=== PATIENT | male | born 1970 | race Caucasian/White ===

== ENCOUNTER 2020-06-15 13:54 | Outpatient (CLI) | payer BC, SELFPAY | END 2020-06-15 13:55 | disposition home or self-care (01) | LOC: ANHAUDIO 13:55 | PROVIDERS: PCP Internal Medicine; Visit Provider Otolaryngology | DX: H90.3 Sensorineural hearing loss, bilateral (principal) | CPT/HCPCS: 92557; 92567 ==

== ENCOUNTER 2020-11-08 08:00 | Outpatient (CLI) | payer BC, SELFPAY ==
--- NOTE | 2020-11-08 17:10 | P.PCNPFT_ITS ---
PFT Interpretation This is a pulmonary function test with pre and post-bronchodilator spirometry, plethysmography and diffusing capacity. The test was performed and results interpreted in accordance with the 2019 and 2005 ATS/ERS Task Force guidelines respectively using the Global Lung Function Initiative-2012 reference equations. Patient demonstrated good effort and c ooperation. Reproducibility criteria were met. The quality of the pre bronchodilator spirometry maneuver was Grade B and post bronchodilator spirometry maneuver was Grade A. Findings: Spirometry: The contour the inspiratory and expiratory flow tracing are normal. The pre bronchodilator FVC is 3.20 L, 63% predicted. The pre bronchodilator FEV1 is 2.76 L, 69% predicted. The FEV1: FVC ratio was 86%. The post bronchodilator FVC is 3.13 L, representing a 2% decrease. The post bronchodilator FEV1 is 2.75 L, representing no change. Plethysmography: The total lung capacity is 4.44 L, 64% predicted. The functional residual capacity is 2.66 L, 75% predicted. The residual volume is 1.24 L, 62% predicted. Diffusing capacity: The absolute diffusion capacity is 20.9, 67% predicted. Th e diffusing capacity corrected for alveolar volume is 6.52, 141% predicted. Impression: There is a moderately restrictive ventilatory abnormality. The spirometry is normal without evidence of an obstructive abnormality. There is no significant improvement after inhaling a single dose of albuterol. The absolute diffusing capacity is mildly decreased and is increased when corrected for alveolar volume. There are no prior studies for comparison
== END 2020-11-08 08:01 | disposition home or self-care (01) ==
PROVIDERS: Family Provider Internal Medicine; PCP Internal Medicine; Visit Provider Internal Medicine
DX: R06.00 Dyspnea, unspecified (principal); R94.2 Abnormal results of pulmonary function studies
CPT/HCPCS: 94060; 94726; 94729

== ENCOUNTER → 2020-11-08 09:10 | Outpatient (CLI) | payer BC, SELFPAY ==
--- NOTE | ~2020-11-08 | XR_ITS ---
EXAMINATION: XR chest 2V DATE: 11/08/2020 09:18 INDICATION: Shortness of breath, possible asbestos exposure TECHNIQUE: PA and lateral views of the chest are obtained. COMPARISON: 10/28/2018 FINDINGS: The lungs are free of acute opacities. No radiographic sequela of asbestos exposure are irineo ntified. A calcified nodule of the right lower lobe is consistent with old granulomatous disease. The re is no pleural effusion or pneumothorax. The cardiomediastinal silhouette is normal. There is mild thoracic spondylosis. There is mild chronic anterior wedging vertebral body. Surgical changes are not ed in the lower cervical spine. IMPRESSION: 1. No radiographic sequela of asbestos exposure identified. Reviewed, dictated and finalized at location A. ARCH [facility]LLOW
== END ==
PROVIDERS: PCP Internal Medicine; Visit Provider Internal Medicine
DX: Z77.090 Contact with and (suspected) exposure to asbestos (principal)
CPT/HCPCS: 71046

== ENCOUNTER 2021-09-19 11:29 | Outpatient (RCR) | payer BC, SELFPAY ==
[2021-09-19] MEDS: diphenhydrAMINE HCl CAP 25 MG CAPSULE PO (13:57)
[2021-09-19] MEDS: ACETAMINOPHEN 325 MG TABLET 650 MG PO (13:57)
[2021-09-19] MEDS: FAMOTIDINE 20 MG TABLET PO (13:57)
[2021-09-19 13:58] VITALS: BP 141/86; PULSE 84; RESP 16; TEMP 36.3; O2SAT 99
[2021-09-19 15:23] VITALS: BP 143/89; PULSE 75; O2SAT 99
== END 2021-09-19 16:00 ==
LOC: AMCINF 11:29
PROVIDERS: PCP Internal Medicine; Visit Provider Internal Medicine Hematology & Oncology
DX: U07.1 COVID-19 (principal); I10 Essential (primary) hypertension
CPT/HCPCS: A9270; M0243; Q0244

== ENCOUNTER 2022-12-29 14:02 | Outpatient (CLI) | payer BC, SELFPAY ==
[2022-12-29 15:05] LABS: SARS-CoV-2 RNA PCR Negative (Negative)
== END 2022-12-29 14:03 | disposition home or self-care (01) ==
LOC: ANHLAB 14:03
PROVIDERS: PCP Internal Medicine; Visit Provider Physician Assistant
DX: R68.89 Other general symptoms and signs (principal); Z20.822 Contact with and (suspected) exposure to COVID-19
CPT/HCPCS: U0003; U0005

== ENCOUNTER 2023-08-17 12:34 | Outpatient (CLI) | payer BC, SELFPAY ==
--- NOTE | 2023-08-17 12:41 | ECHO_ITS ---
Patient Info Name: Vern Sanders Age: 53 years : 1970 Gender: Male Ht: 71 in Wt: 205 lbs BSA: 2.18 m2 HR: 62 bpm BP: 155 / 99 mmHg Heart Rhythm: Sinus Rhythm Technical Quality: Good Exam Date: 08/17/2023 12:54 PM Exam Location: Echo Lab Patient Status: Outpatient Admit Date: 08/17/2023 Staff Ordering Physician: Gustavo Edwards PA-C Tablet Coater: Mirella Palomino RDCS Attending Provider: Gustavo Edwards PA-C Referring Physician: Grace GUNDERSON; Exam Type: CA echo doppler color flow Study Info Indications - New onset pedal edema Complete two-dimensional, color flow and Doppler transthoracic echocardiogram is performed. Summary 1. Complete two-dimensional, color flow and Doppler transthoracic echocardiogram is performed. 2. Left ventricular chamber dimension is normal. 3. Left ventricular systolic function is normal, estimated at 65-70%. 4. The left ventricular diastolic function is grade II diastolic dysfunction. 5. E/e' 11 is mildly elevated. 6. Left atrial chamber dimension is moderately enlarged. 7. Right atrial chamber dimension is mildly enlarged. 8. There is mild aortic valve sclerosis. 9. There is trace aortic valve regurgitation. 10. There is mild mitral valve regurgitation. 11. There is trace tricuspid valve regurgitation. 12. Mild pulmonary hypertension, estimated pulmonary arterial systolic pressure is 40 mmHg. 13. There is trace pulmonic regurgitation. Left Ventricle E/e' 11 is mildly elevated. Left ventricular chamber dimension is normal. Left ventricular systolic function is normal, estimated at 65-70%. The left ventricular diastolic function is grade II diastolic dysfunction. Right Ventricle Right ventricular systolic function is normal and with normal TAPSE 3.4 cm. Right ventricular chamber dimension is normal. Left Atria Left atrial chamber dimension is moderately enlarged. Right Atria Right atrial chamber dimension is mildly enlarged. Aortic Valve The aortic valve is trileaflet. There is mild aortic valve sclerosis. There is no aortic valve stenosis. There is trace aortic valve regurgitation. Pulmonic Valve There is trace pulmonic regurgitation. Mitral Valve There is no mitral valve stenosis. There is mild mitral valve regurgitation. Tricuspid Valve There is trace tricuspid valve regurgitation. Mild pulmonary hypertension, estimated pulmonary arterial systolic pressure is 40 mmHg. Pericardium/Pleural There is no pericardial effusion. Inferior Vena Cava Normal inferior vena cava with >50% collapse upon inspiration consistent with normal right atrial pressure, 5 mmHg. Aorta The aortic root size at the sinus of Valsalva is normal. Left Ventricular Outflow Tract Name Value Normal LVOT 2D LVOT Diameter 2.1 cm LVOT Doppler LVOT Peak Gradient 10 mmHg LVOT Mean Gradient 4 mmHg LVOT VTI 32 cm LVOT VTI/AV VTI Ratio 0.8 LVOT Stroke Volume 107 ml LVOT CO 7.3 l/min LVOT CI 3.4 l/min/m2 Pulmonic Valve
== END 2023-08-17 12:35 | disposition home or self-care (01) ==
LOC: ANHCARD 12:35
PROVIDERS: PCP Internal Medicine; Visit Provider Physician Assistant
DX: R93.1 Abnormal findings on diagnostic imaging of heart and coronary circulation (principal); I35.8 Other nonrheumatic aortic valve disorders; I35.1 Nonrheumatic aortic (valve) insufficiency; I34.0 Nonrheumatic mitral (valve) insufficiency; I07.1 Rheumatic tricuspid insufficiency; I27.20 Pulmonary hypertension, unspecified; I37.1 Nonrheumatic pulmonary valve insufficiency; R60.0 Localized edema
CPT/HCPCS: 93306

== ENCOUNTER 2025-06-05 13:45 | Outpatient (CLI) | payer OTHER, SELFPAY ==
--- OUTSIDE RECORDS SUMMARY | 2005-10-11 19:00 | XMS_ITS | Continuity of Care Document ---
Author Organization [facility] Address [address] [place] [address] Phone Care Team Providers Care Wildlife Biologist Name Role Phone Elton Cortes MD Unavailable Unavailable Advance Directives Directive Yes / No Effective Date File Name No Information Encounters Encounter Description Practice Location Reason(s) For Visit Diagnoses Date Provider Providers Copied on Encounter [facility], [address], [place], [place], [id number], tel:[phone] [facility] [id number] FX-CL/CRD INJ NOS Sebastian Conde. [address], [place], [place], [id number]. tel:[phone] [facility], [address], [place], [place], [address], tel:[phone] [facility] OTH ADV EFF MED/BIO SUBSCIATICA Sebastian Conde. [address], [place], [place], [id number]. tel:[phone] Family History Family Member Type Diagnosis Age At Onset No Information Payers Payer name Insurance type Covered libertarian ID Authoriza tion(s) No Information Social History Type Description Quantity Date Captured Comments Sex Male Smoking Status No Information Chief Complaint And Reason For Visit No Information Reason For Referral Reason For Referral No Information History Of Present Illness Encounter Date Complaint History Of Prese nt Illness No Information Functional Status Date Functional Assessmen t No Information Instructions Date Instruction Additional Infor mation No Information Assessments Type Assessment Date No Information Patient Care Teams Name Effective Dates (start - stop) Status Members No Information
--- NOTE | ~2025-06-05 | XR_ITS ---
EXAMINATION: XR hip RT min 2V, 06/05/2025 13:55 CDT HISTORY: M25.551 - Pain in right hip, CHRONIC, POPPING, LATERAL PAIN COMPARISON: No comparisons available. Findings: No acute fracture or malalignment. No significant degenerative changes. Soft tissues unremarkable. Impression: No acute fracture or malalignment. Reviewed, dictated and finalized at location P. Impression: No acute fracture or malalignment.
--- OUTSIDE RECORDS SUMMARY | 2025-06-05 13:49 | XMS_ITS | Clinical Summary ---
Author Organization [facility] Address [address] [address] Phone Care Team Providers Care Prefitter Doors Name Role Phone Cheng Anthony Primary Care Provider [phone] Allergies No known active allergies Medications HYDROcodone-acet aminophen (Porter) 5-325 MG Tablet Take 1 Tab by mouth every 8 hours as needed. Active Multiple Vitamin (MULTI-VITAMIN PO) Take by mouth every morning. Active lisinopril (PRINIVIL, ZESTRIL) 40 MG Tablet Take 40 mg by mouth daily. Active naproxen (NAPROSYN) 250 MG Tablet Take 250 mg by mouth 2 times daily (with meals). Active Encounters Date Type Department Care Team Description 05/06/2025 Telephone [facility] - Gastroenter[facility] [address] [place] [address] Lucho Giron MD Request for Records from Last 3 Months Family History Medical History Relation Name Comments Cancer Father colon Cancer Mother Breast Relation Name Status Comments Father Mother Social History Tobacco Use Types Packs/Day Years Used Date Smoking Tobacco: Never Smokeless Tobacco: Former Chew Quit: 1995 Alcohol Use Standard Drinks/Week Comments Yes 2 (1 standard drink = 0.6 oz pur e alcohol) Sex and Gender Information Value Date Recorded Sex Assigned at Not on file Legal Sex Male 9:25 PM CDT Gender Identity Not on file Sexual Orientation Not on file Last Filed Vital Signs Vital Sign Reading Time Taken Comments Blood Pressure 119/79 06/08/2020 7:46 AM CDT Pulse 61 06/08/2020 7:46 AM CDT Temperature 36 C (96.8 F) 06/08/2020 7:46 AM CDT Respiratory Rate 17 06/08/2020 7:46 AM CDT Oxygen Saturation 99% 06/08/2020 7:46 AM CDT Inhaled Oxygen Concentration - - Weight 99.8 kg (220 lb) 05/05/2020 11:00 AM CDT Height 177.8 cm (5' 10) 05/05/2020 11:00 AM CDT Body Mass Index 31.57 05/05/2020 11:00 AM CDT Plan of Treatment Health Maintenance Due Date Last Done Comments Hepatitis C Virus (HCV) Screening 1970 Hepatitis B Immunization (1 of 3 - 19+ 3-dose series) 1991 Cologuard 2017 Immunochemical Fecal Occult Blood 2017 Pneumococcal Immunization (50+ years) (1 of 1 - PCV) 2022 Zoster Immunization (1 of 2) 2022 Influenza Immunization (#1) 2025 1011/2018, 05/30/2018, 06/14/2017, Additional history exists SARS-COV-2 Immunization (2024- season) 2025 07/26/2021, 11/05/2020 Colonoscopy 06/08/2030 06/08/2020 Colorectal Cancer Screening 06/08/2030 Respiratory Syncytial Virus (RSV) Immunization (Adult) (1 - 1-dose 75+ series) 2047 DTaP/Tdap/Td Immunization Discontinued 06/19/2018 TdaP Immunization Completed 06/19/2018 Human Papillomavirus (HPV) Immunization Aged Out No longer eligible based on patient's age to complete this topic Meningococcal Immunization (ACWY) Aged Out No longer eligible based on patient's age to complete this topic Rotavirus Immunization Aged Out No lo nger eligible based on patient's age to complete this topic Insurance Care Teams Prefitter Doors Relationship Specialty Start Date End Date Cheng Anthony DO [address] [place] [address] PCP - General Internal Medicine 12/02/18
--- OUTSIDE RECORDS SUMMARY | 2025-06-05 13:49 | XMS_ITS | Clinical Summary ---
Author Organization [facility] Address [address] [place] [address] Care Team Providers Care Forestry Crew Chief Name Role Phone Cheng Anthony DO Primary Care Provider [phone] Source Comments [facility],non-owned Affiliates and Associated Physician Practices is amultiple site organization consisting of ambulatory clinics and hospital sitesin [place], [place], [place] and [place]. This disclosure is being madepursuant to the Care Everywhere program and may not contain all information available regarding this patient. Last updated 18.[facility] Allergies No known active allergies Medications * Be aware that medications may not be up to date on this document. Alwaysverify current medications with the patient. cyclobenzaprine (FLEXERIL) 10 MG tablet Take 10 mg by mouth nightly as needed 7 Active naproxen (NAPROSYN) 500 MG tablet Take 500 mg by mouth 2 times daily as needed 7 Active HYDROcodone-martinez taminophen (NORCO) 5-325 MG tablet Take by mouth every 6 hours as needed 7 Active SUMAtriptan (IMITREX) 100 MG tablet Take 1 tablet by mouth once as needed for Migraine 9 tablet 4 7 Active Additional Information Patient not taking.Reported on 11/06/2017 topiramate (TOPAMAX) 50 MG tablet Take 1 tablet by mouth at bedtime 30 tablet 5 7 Active Additional Information Patient not taking.Reported on 11/06/2017 indomethacin (INDOCIN) 50 MG capsule Take 1 capsule by mouth 3 times daily as needed for Pain 60 capsule 4 03/06/201 8 Active Active Problems Problem Noted Date Diagnosed Date Hyperlipemia Back pain Family History Medical History Relation Name Comments Cancer - Prostate Father Cancer - Breast Mother Other Sister Rdz's Relation Name Status Comments Brother Alive Father Alive Mother Sister Alive Social History Tobacco Use Types Packs/Day Years Used Date Smoking Tobacco: Never Smokeless Tobacco: Former Tobacco Cessation:Counseling Given: No Alcohol Use Standard Drinks/Week Comments Yes 0 (1 standard drink = 0.6 oz pur e alcohol) Occasionally Sex and Gender Information Value Date Recorded Sex Assigned at Not on file Legal Sex Male 9:17 AM LAND DEVELOPER Gender Identity Not on file Sexual Orientation Not on file Occupation Industry Job Start Date Job End Date [employer] Not on file Not on file Not on file Last Filed Vital Signs Vital Sign Reading Time Taken Comments Blood Pressure 149/91 11/06/2017 1:10 PM LAND DEVELOPER Pulse 62 11/06/2017 1:10 PM LAND DEVELOPER Temperature - - Respiratory Rate - - Oxygen Saturation - - Inhaled Oxygen Concentration - - Weight 97.5 kg (215 lb) 11/06/2017 1:10 PM LAND DEVELOPER Height 180.3 cm (5' 11) 11/06/2017 1:10 PM LAND DEVELOPER Body Mass Index 29.99 11/06/2017 1:10 PM LAND DEVELOPER Plan of Treatment Health Maintenance Due Date Last Done Comments COLOGUARD (AGES 45-75) - COL ON CA SCREENING 1970 COLON MONITORING 1972 COLONOSCOPY - COLON CA SCREENING 1972 CT COLONOGRAPHY - COLON CA SCREENING 1972 Colorectal Cancer Screening 1972 FIT - COLON CA SCREENING 1972 FLEX SIG - COLON CA SCREENING 1972 LIPID TESTING 1972 HIV SCREENING 1987 HEPATITIS C SCREENING 04/10/1990 DTAP/TDAP/TD VACCINES (1 - Tdap) 1991 HEPATITIS B VACCINE (1 of 3 - 19+ 3-dose series) 1991 SCREENING FOR DIABETES 08/07/2017 PNEUMOCOCCAL VACCINE 50+ (1 of 1 - PCV) 2022 ZOSTER VACCINE (1 of 2) 2022 DEPRESSION SCREENING 09/03/2024 COVID-19 VACCINE (1 - 2023-2 5 season) 2025 INFLUENZA VACCINE (#1) 2025 HIB VACCINE Aged Out No longer eligi ble based on patient's age to complete this topic HPV VACCINE Aged Out No longer eligi ble based on patient's age to complete this topic MENINGOCOCCAL (Group B) VACC INE SHARED DECISION-MAKING Aged Out No longer eligibl e based on patient's age to complete this topic MENINGOCOCCAL GROUPS A/C/Y/W VACCINE Aged Out No longer eligible b ased on patient's age to complete this topic Insurance ANTHEM Care Teams Forestry Crew Chief Relationship Specialty Start Date End Date Cheng Anthony DO [address] [place] [address] PCP - General Internal Medicine 08/07/17
== END 2025-06-05 13:46 | disposition home or self-care (01) ==
PROVIDERS: PCP Internal Medicine; Visit Provider Internal Medicine
DX: M25.551 Pain in right hip (principal)
CPT/HCPCS: 73502